=== PATIENT | male | born 1960 | race Caucasian/White ===

== ENCOUNTER → 2021-05-20 07:59 | Outpatient (CLI) | payer OTHER, SELFPAY ==
[2021-05-20 08:44] LABS: Absolute Lymphocyte Count 2.05 X10^3/uL (0.83-4.51); Absolute Neutrophil Count 5.1 X10^3/uL (2.0-7.7); Basophil# 0.08 X10^3/uL; Eosinophil# 0.26 X10^3/uL; Eosinophils% 3.2 % (0-5); Hematocrit 45.8 % (40-54); Hemoglobin 15.7 g/dL (13.0-16.5); Lymphocyte # 2.05 X10^3/ul (0.83-4.51); Mean Corp Hgb Conc 34.3 g/dL (32-36); Mean Corpuscular Hgb 30.9 pg (27.0-32.0); Mean Corpuscular Volume 90.2 fL (80-94); Mean Platelet Vol. 9.1 fl (6.2-12.0); Monocyte# 0.67 X10^3/uL; Monocyte% 8.2 % (0-10); NRBC Flagged by Analyzer 0 % (0-5); Neutrophil # 5.13 X10^3/uL (2.7-7.7); Neutrophil % 62.4 % (47-70); Platelet Count 248 K/mm3 (150-450); RBC Distribution Width CV 11.8 % (11.6-14.6); RBC Distribution Width SD 38.8 fl (35.1-43.9); Red Blood Count 5.08 M/mm3 (4.6-6.2); White Blood Count 8.2 K/mm3 (4.4-11.0)
[2021-05-20 09:45] LABS: ALB/GLOB Ratio 1.1 RATIO (0.9-2.4); AST(SGOT) 41 U/L (15-37); Alanine Aminotransfer ALT/SGPT 73 U/L (16-61); Alkaline Phosphatase 93 U/L (45-117); Anion Gap 5 (5-15); BUN 12 mg/dL (7-18); BUN/Creat Ratio 16.2 RATIO (10-20); Calcium,Total 8.5 mg/dL (8.5-10.1); Chloride 102 mmol/L (98-107); Cholesterol 200 mg/dL (200); Creatinine, Serum 0.74 mg/dL (0.70-1.30); EST Glomerular Filtration Rate 114 mL/min (>60); Est Glom Filt Rate - Afr Amer 138 mL/min (>60); Globulin 3.6 g/dL (2.2-4.2); Glucose 90 mg/dL (74-106); High Density Lipoprotein 53 mg/dL; Potassium 3.5 mmol/L (3.5-5.1); Protein, Total 7.6 g/dL (6.4-8.2); Sodium Level 137 mmol/L (136-145); Thyroid Stim Hormone (TSH) 7.64 uIU/mL (0.358-3.74); Triglycerides 397 mg/dL; Very Low Density Lipoprotein 79 mg/dL (5-40)
== END ==
PROVIDERS: PCP Family Medicine; Referring Provider Family Medicine; Visit Provider Family Medicine
DX: I10 Essential (primary) hypertension (principal); E78.5 Hyperlipidemia, unspecified; E03.9 Hypothyroidism, unspecified; K21.9 Gastro-esophageal reflux disease without esophagitis
CPT/HCPCS: 36415; 80053; 80061; 84443; 85025

== ENCOUNTER 2021-12-16 10:41 | Emergency (ER) | payer OTHER, SELFPAY ==
[2021-12-16 10:42] VITALS: BP 125/97; PULSE 64; RESP 16; TEMP 36.6; O2SAT 99; BMI 26.4
--- NOTE | 2021-12-16 11:15 | RAD_ITS ---
STUDY: X-RAY - RIGHT WRIST REASON FOR EXAM: Right wrist pain, right wrist injury. TECHNIQUE: 3 view(s) of the wrist were obtained. COMPARISON: None. FINDINGS: Normal visualized distal radius and ulna. Normal radiocarpal articulation. Normal distal radioulnar articulation. Normal carpal bones. Normal carpal articulations. Normal carpometacarpal articulation of the thumb. Normal second through fifth carpometacarpal articulations. Normal visualized metacarpal bones. The soft tissue structures are unremarkable. RAD/Wrist min 3 Views IMPRESSION: Unremarkable x-ray examination of the right wrist. Electronically Signed: Kolby Mckeon MD at 12:15 EST ,
--- NOTE | 2021-12-16 13:19 | EX.ED.UPPERE ---
HPI History of Present Illness HPI Narrative: Patient presents with right wrist pain that began after a fall today. Patient slipped on the ice and landed on his right wrist. Patient states that the pain is dull. Patient states the pain is worse with movement. Patient states nothing seems to help with the pain. Patient states that the swelling has gotten progressively worse since the fall. Patient denies any head injury or loss of consciousness. Patient denies any paresthesias or weakness. Patient denies any other injuries. Chief Complaint: Upper Extremity Injury Informant: patient Occured/Mechanism Mechanism/Context: Yes fall Onset/Context/Timing Onset: Today Context: Sudden Onset Timing: Continuous Quality of Pain: Dull Location: Right wrist Worsened by: Movement Relieved by: Nothing Associated Symptoms Associated Symptoms: Negative for Parasthesia, Weakness and Loss of Funtion PFSH PFSH Medical History GERD (gastroesophageal reflux disease) Hypertension Hypothyroid Home Medications ibuprofen 800 mg PO Q8H PRN #20 tab 12/16/21 [Rx Last Taken Unknown] Allergy/AdvReac Type Severity Reaction Status Date / Time Penicillins [PCN] Allergy PT UNSURE Verified 12/16/21 10:42 OF REACTION Surgical History History of appendectomy Social History Smoking Status: Former smoker ROS ROS ED Constitutional Constitutional ED: Denies chills or fever(s) Eyes Eyes: Denies blurry vision or change in vision ENT ENT ED: Denies rhinorrhea or sore throat Cardiovascular Cardiovascular: Denies chest pain or palpitations Respiratory/Chest Respiratory/Chest: Denies cough or dyspnea Gastrointestinal Gastrointestinal: Denies nausea or vomiting Genitourinary Genitourinary ED: Denies dysuria or hematuria Musculoskeletal Musculoskeletal: Reports back pain; Denies neck pain Integumentary Denies abscess or rash Neurologic Neurologic: Denies headache(s) or weakness Allergic/Immunologic Allergic/Immunologic ED: Denies mouth swelling or urticaria EXAM Physical Exam Const Vital Signs: 12/16/21 10:42 Temperature 97.8 F Temperature Source Temporal Pulse Rate 64 Respiratory Rate 16 Blood Pressure 125/97 H Blood Pressure Mean 106 Pulse Ox 99 Oxygen Delivery Method Room Air Positive well nourished and well developed General Appearance ED: well developed HEENT Reports moist mucous membranes Neck full ROM and supple Extremity Extremity Narrative: There is tenderness and edema over the dorsal aspect of the right wrist. There is no tenderness over the anatomic snuffbox. There is no obvious deformity noted. Range of motion was slightly limited in flexion extension of the right wrist secondary to pain. Radial pulses are equal bilaterally. Sensation was intact to light touch in the radial, median, and ulnar areas. Strength is 5/5 in the radial, median, and ulnar areas. Neuro oriented x3, CN's II-XII intact bilaterally, moves all extremities, no focal motor deficits and no sensory deficits noted Sensorium / Orientation: alert Psych mental status grossly normal MDM MDM MDM Narrative Medical decision making narrative: X-rays of the right wrist were obtained. There are 3 views. On my interpretation, there is no acute fracture. There is no dislocation. Radiologist also interpreted the x-rays and agrees. Patient was given a Velcro wrist splint. Even though the patient does not have tenderness over the anatomic snuffbox, I did discuss the possibility of an occult scaphoid fracture with the patient. Patient was encouraged to follow-up with his primary care physician in 1 to 2 weeks. Patient was instructed to ice and elevate the right wrist. Patient was instructed to take Tylenol or ibuprofen as needed for pain. Patient understood and was agreeable with the plan. All questions were answered. Radiography Diagnostic Testing: Clinical Impression(s) from Imaging Studies Wrist X-Ray 12/16/21 11:15 IMPRESSION: Unremarkable x-ray examination of the right wrist. Electronically Signed: Kolby Mckeon MD at 12:15 [facility] , Discharge Plan Triage Chief Complaint: Upper Extremity Injury ED Provider: Rodney Zimmer Dx/Rx/DC Orders Clinical Impression: Right wrist sprain Instructions: ED Wrist Sprain Prescriptions: New ibuprofen 800 mg tablet 800 mg PO Q8H PRN (Reason: pain) Qty: 20 RF: 0 Primary Care Provider: Jayde Love Referrals: Jayde Love MD [Primary Care Provider] - 5-7 Days Disposition Disposition: Home, Self Care Discharge Date/Time: 12/16/21 13:36
[2021-12-16 13:36] VITALS: RESP 18
== END 2021-12-16 13:36 | disposition home or self-care (01) ==
PROVIDERS: Emergency Provider Emergency Medicine; PCP Family Medicine; Visit Provider Emergency Medicine
DX: S63.91XA Sprain of unspecified part of right wrist and hand, initial encounter (principal); Z87.891 Personal history of nicotine dependence; W00.0XXA Fall on same level due to ice and snow, initial encounter; Y93.9 Activity, unspecified; Y92.9 Unspecified place or not applicable
CPT/HCPCS: 73110; 99283

== ENCOUNTER → 2022-09-01 | Outpatient (CLI) | payer OTHER, SELFPAY ==
[2022-09-01 09:17] LABS: Absolute Lymphocyte Count 2.07 X10^3/uL (0.83-4.51); Absolute Neutrophil Count 4.1 X10^3/uL (2.0-7.7); Basophil# 0.09 X10^3/uL; Basophil% 1.3 % (0-1); Eosinophil# 0.18 X10^3/uL; Eosinophils% 2.5 % (0-5); Hematocrit 45.9 % (40-54); Hemoglobin 15.5 g/dL (13.0-16.5); Lymphocyte # 2.07 X10^3/ul (0.83-4.51); Lymphocyte % 29.1 % (19-41); Mean Corp Hgb Conc 33.8 g/dL (32-36); Mean Corpuscular Hgb 31.3 pg (27.0-32.0); Mean Corpuscular Volume 92.7 fL (80-94); Mean Platelet Vol. 9.3 fl (6.2-12.0); Monocyte# 0.62 X10^3/uL; Monocyte% 8.7 % (0-10); NRBC Flagged by Analyzer 0 % (0-5); Neutrophil # 4.14 X10^3/uL (2.7-7.7); Neutrophil % 58.1 % (47-70); Platelet Count 248 K/mm3 (150-450); RBC Distribution Width CV 11.9 % (11.6-14.6); Red Blood Count 4.95 M/mm3 (4.6-6.2); White Blood Count 7.1 K/mm3 (4.4-11.0)
[2022-09-01 09:52] LABS: AST(SGOT) 29 U/L (15-37); Alanine Aminotransfer ALT/SGPT 49 U/L (16-61); Albumin, Serum 3.9 g/dL (3.2-5.0); Alkaline Phosphatase 86 U/L (45-117); Anion Gap 9 (5-15); BUN 11 mg/dL (7-18); BUN/Creat Ratio 13.6 RATIO (10-20); Calcium,Total 8.7 mg/dL (8.5-10.1); Chloride 103 mmol/L (98-107); Cholesterol 183 mg/dL (200); Creatinine, Serum 0.81 mg/dL (0.70-1.30); EST Glomerular Filtration Rate 103 mL/min (>60); Est Glom Filt Rate - Afr Amer 125 mL/min (>60); Globulin 3.8 g/dL (2.2-4.2); Glucose 78 mg/dL (74-106); High Density Lipoprotein 73 mg/dL; Potassium 4.2 mmol/L (3.5-5.1); Protein, Total 7.7 g/dL (6.4-8.2); Sodium Level 139 mmol/L (136-145); Triglycerides 177 mg/dL; Very Low Density Lipoprotein 35 mg/dL (5-40)
== END | disposition home or self-care (01) ==
LOC: LAB 08:34
PROVIDERS: PCP Family Medicine; Referring Provider Family Medicine; Visit Provider Family Medicine
DX: Z00.00 Encounter for general adult medical examination without abnormal findings (principal); I10 Essential (primary) hypertension; E78.5 Hyperlipidemia, unspecified; E03.9 Hypothyroidism, unspecified
CPT/HCPCS: 36415; 80053; 80061; 84443; 85025

== ENCOUNTER → 2022-10-20 | Outpatient (CLI) | payer OTHER, SELFPAY ==
[2022-10-20 09:41] LABS: PSA,Total- Diagnostic 0.32 ng/mL (0.0-4.0)
== END | disposition home or self-care (01) ==
LOC: LAB 08:24
PROVIDERS: PCP Family Medicine; Referring Provider Urology; Visit Provider Urology
DX: N40.1 Benign prostatic hyperplasia with lower urinary tract symptoms (principal)
CPT/HCPCS: 36415; 84153

== ENCOUNTER 2023-08-17 10:16 | Outpatient (CLI) | payer OTHER, SELFPAY ==
[2023-08-17 12:11] LABS: Color, Urine Yellow (Yellow); Glucose, Dipstick Normal (Normal); Ketone-Dipstick Negative (Negative); Leukocyte Esterase-Dipstick Negative /ul (Negative); Nitrite-Dipstick Negative (Negative); Occult Blood-Urine Negative /ul (Negative); Protein-Dipstick Negative (Negative); Specific Gravity, Urine 1.015 (1.002-1.030); Urine Bilirubin Dipstick Negative (Negative); Urine Clarity Clear (Clear); Urine Urobilinogen Normal (Normal)
[2023-08-17 12:14] LABS: Absolute Lymphocyte Count 2.35 X10^3/uL (0.83-4.51); Absolute Neutrophil Count 3.7 X10^3/uL (2.0-7.7); Basophil# 0.05 X10^3/uL; Basophil% 0.7 % (0-1); Eosinophils% 2.9 % (0-5); Hematocrit 44.6 % (40-54); Hemoglobin 14.9 g/dL (13.0-16.5); Lymphocyte # 2.35 X10^3/ul (0.83-4.51); Lymphocyte % 33.8 % (19-41); Mean Corp Hgb Conc 33.4 g/dL (32-36); Mean Corpuscular Hgb 31.2 pg (27.0-32.0); Mean Corpuscular Volume 93.5 fL (80-94); Mean Platelet Vol. 9.8 fl (6.2-12.0); Monocyte% 8.6 % (0-10); NRBC Flagged by Analyzer 0 % (0-5); Neutrophil # 3.72 X10^3/uL (2.7-7.7); Neutrophil % 53.4 % (47-70); Platelet Count 246 K/mm3 (150-450); RBC Distribution Width CV 11.9 % (11.6-14.6); RBC Distribution Width SD 41.3 fl (35.1-43.9); Red Blood Count 4.77 M/mm3 (4.6-6.2)
[2023-08-17 13:41] LABS: ALB/GLOB Ratio 0.9 RATIO (0.9-2.4); AST(SGOT) 31 U/L (15-37); Alanine Aminotransfer ALT/SGPT 69 U/L (16-61); Albumin, Serum 3.5 g/dL (3.2-5.0); Alkaline Phosphatase 79 U/L (45-117); Anion Gap 7 (5-15); BUN 13 mg/dL (7-18); BUN/Creat Ratio 18.7 RATIO (10-20); Calcium,Total 8.8 mg/dL (8.5-10.1); Chloride 105 mmol/L (98-107); Cholesterol 218 mg/dL (200); Creatinine, Serum 0.69 mg/dL (0.70-1.30); EST Glomerular Filtration Rate 122 mL/min (>60); Est Glom Filt Rate - Afr Amer 148 mL/min (>60); Globulin 3.7 g/dL (2.2-4.2); Glucose 86 mg/dL (74-106); High Density Lipoprotein 54 mg/dL; Potassium 4.1 mmol/L (3.5-5.1); Protein, Total 7.2 g/dL (6.4-8.2); Sodium Level 137 mmol/L (136-145); Thyroid Stim Hormone (TSH) 3.85 uIU/mL (0.358-3.74); Triglycerides 401 mg/dL
== END 2023-08-17 23:59 | disposition home or self-care (01) ==
LOC: BFHLAB 10:16
PROVIDERS: PCP Family Medicine; Referring Provider Family Medicine; Visit Provider Family Medicine
DX: Z00.00 Encounter for general adult medical examination without abnormal findings (principal); K21.9 Gastro-esophageal reflux disease without esophagitis; I10 Essential (primary) hypertension; E03.9 Hypothyroidism, unspecified; E78.5 Hyperlipidemia, unspecified
CPT/HCPCS: 36415; 80053; 80061; 81002; 84443; 85025

== ENCOUNTER → 2023-11-01 | Outpatient (CLI) | payer OTHER, SELFPAY ==
--- OUTSIDE RECORDS SUMMARY | 2023-11-01 13:16 | XMS RPT_ITS | CCD ---
Author Name Unknown Address [address] [place] [address] Organization [facility] Care Team Providers Care Bag Bundler Name Role Phone Jean Aldrich Primary Care Provider JEAN ALDRICH Primary Care Unavailable JOVANA RAYO Attending Unavailable Allergies Allergy Classification Reported Allergen(s) Allergy Type Date of Onset Reaction(s) Facility (1 source) Penicillins Propensity to adverse reactions to drug 06-09-2015 [place] (2 sources) Penicillins Propensity to adverse reactions 08-08-2023 [facility] Medications Current Medications Medication Drug Class(es) Dates Sig (Normalized) Sig (Original) benazepril hydrochloride 20 mg oral tablet (1 source) Angiotensin Converting Enzyme Inhibitor Start: 06-14-2020 take 1 tablet by mouth once daily in the morning benazepril (LOTENSIN) 20 MG tablet Take 1 tablet by mouth every morning 30 tablet 5 06/14/2020 Active levothyroxine sodium 0.088 mg oral tablet (1 source) l-Thyroxine Start: 06-14-2020 take 1 tablet by mouth once daily before breakfast levothyroxine (SYNTHROID) 88 MCG tablet Take 1 tablet by mouth every morning (before breakfast) 30 tablet 5 06/14/2020 Active lovastatin 40 mg oral tablet (1 source) HMG-CoA Reductase Inhibitor Start: 06-14-2020 take 1 tablet by mouth once daily lovastatin (MEVACOR) 40 MG tablet Take 1 tablet by mouth nightly 30 tablet 5 06/14/2020 Active omeprazole 20 mg delayed release oral capsule (1 source) Proton Pump Inhibitor Start: 06-14-2020 take 1 capsule by mouth once daily before breakfast omeprazole (PRILOSEC) 20 MG delayed release capsule Take 1 capsule by mouth every morning (before breakfast) 30 capsule 5 06/14/2020 Active sildenafil 100 mg oral tablet (1 source) Phosphodiesterase 5 Inhibitor Start: 06-14-2020 sildenafil (VIAGRA) 100 MG tablet Take 1 tablet by mouth as needed for Erectile Dysfunction 24 tablet 1 06/14/2020 Active Completed/Discontinued Medications Medication Drug Class(es) Dates Sig (Normalized) Sig (Original) predniSONE 20 mg oral tablet (4 sources) Start: 08-08-2023 End: 08-08-2023 predniSONE (Deltasone) tablet 60 mg Problems Active Problems Problem Classification Problem Date Documented Date Episodic/Chronic Disorders of lipid metabolism (3 sources) Mixed hyperlipidemia; Translations: [Mixed hyperlipidemia] Onset: 06-10-2015 06-10-2015 Chronic Esophageal disorders (4 sources) Gastroesophageal reflux disease without esophagitis; Translations: [Gastroesophageal reflux disease] Onset: 01-19-2016 03-15-2016 Chronic Essential hypertension (3 sources) Essential hypertension; Translations: [Essential (primary) hypertension] Onset: 08-10-2017 05-22-2019 Chronic Other connective tissue disease (1 source) Metatarsalgia of right foot; Translations: [Metatarsalgia of right foot] Other male genital disorders (3 sources) Male erectile dysfunction, unspecified; Translations: [Impotence of organic origin] Onset: 01-24-2018 05-22-2019 Chronic Poisoning by nonmedicinal substances (4 sources) Bee sting; Translations: [Toxic effect of venom of bees, accidental (unintentional), initial encounter] Onset: 08-08-2023 08-08-2023 Episodic Thyroid disorders (7 sources) Non-toxic multinodular goiter; Translations: [Acquired hypothyroidism] Onset: 10-22-2011 06-10-2015 Chronic Past or Other Problems Problem Classification Problem Date Documented Date Episodic/Chronic Residual codes; unclassified (3 sources) Family history of ischemic heart disease; Translations: [Family history of ischemic heart disease and other diseases of the circulatory system] Onset: 06-10-2015 06-10-2015 Episodic Residual codes; unclassified (4 sources) Family history of malignant neoplasm of gastrointestinal tract; Translations: [Family history of malignant neoplasm of digestive organs] Onset: 12-14-2019 Resolved: 09-13-2016 12-14-2019 Episodic Residual codes; unclassified (3 sources) Family history of malignant neoplasm of pancreas; Translations: [Family history of malignant neoplasm of digestive organs] Onset: 09-13-2016 09-13-2016 Episodic Results Test Name Value Interpretation Reference Range Facil ity Vital Signs Date Time Vital Sign Value Performing Clinician Faci lity 08-08-2023 15:32-0400 Body height 180.3 cm Jovana Rayo MD Work Phone: [facility] [employer] 08-08-2023 15:32-0400 Body mass index (BMI) [Ratio] 27.89 kg/m2 Jovana Rayo MD Work Phone: [facility] [facility] 08-08-2023 15:32-0400 Body temperature 98.4 [degF] Jovana Rayo MD Work Phone: [facility] [facility] 08-08-2023 15:32-0400 Body weight 90.72 kg Jovana Rayo MD Work Phone: [facility] [facility] 08-08-2023 15:32-0400 Diastolic blood pressure 91 mm[Hg] Jovana Rayo MD Work Phone: [facility] [facility] 08-08-2023 15:32-0400 Heart rate 64 /min Jovana Rayo MD Work Phone: [facility] [facility] 08-08-2023 15:32-0400 Respiratory rate 16 /min Jovana Rayo MD Work Phone: [facility] [facility] 08-08-2023 15:32-0400 SaO2% (BldA) [Mass fraction] 98 % Jovana Rayo MD Work Phone: [facility] [facility] 08-08-2023 15:32-0400 Systolic blood pressure 132 mm[Hg] Jovana Rayo MD Work Phone: [facility] [facility] Encounters Encounter Date Encounter Type Care Provider Facility Start: 08-08-2023 End: 08-08-2023 Emergency department patient visit JEAN ALDRICH [facility] Start: 08-08-2023 End: 08-08-2023 Emergency department patient visit Jovana Rayo MD Work Phone: [facility] ED Procedures Date Procedure Procedure Detail Performing Clinician Start: 08-23-2020 Radex elbow complete minimum 3 views Jean Aldrich Work Phone: Start: 08-23-2020 Radex foot complete minimum 3 views Jean Meza Valdemar Work Phone: Start: 06-14-2020 Lipid 1996 panel - S calos or Plasma Jovana Rayo MD Work Phone: Plan of Treatment Date Care Activity Detail Author Start: 06-14-2025 Lipid panel Lipid Panel [facility] Start: 06-22-2023 Influenza vaccination Influenza Vacc ine (#1) [facility] Start: 02-15-2022 Screening for malign ant neoplasm of colon Colon cancer screen colonoscopy [place], [place] Start: 06-14-2021 Creatinine measurement Creatinine mo [place]itoring [place] Start: 06-14-2021 Lipid panel Lipid screen [place], [place] Start: 06-14-2021 Potassium monitoring Potassium monit [place]ing [place] Start: 06-14-2021 TSH Qn TSH testing [place] Start: 12-15-2020 End: 12-15-2020 Office Visit 12/15/2020 Office Visit Family Medicine Jean Aldrich, DO [address] [place] [id number] [phone] [facility] Start: 06-22-2020 Influenza vaccination Flu vaccine (# 1) [place] Start: 2010 Shingles Vaccine (1 of 2) Shingles Vaccine (1 of 2) [place] Start: 2010 Zoster Vaccines (1 of 2) Zoster Vacc marichuy (1 of 2) [facility] Start: 1979 DTaP/Tdap/Td vaccine (1 - Tdap) DTaP/Tdap/Td vaccine (1 - Tdap) [place] Start: 1979 DTaP/Tdap/Td Vaccine s (1 - Tdap) DTaP/Tdap/Td Vaccines (1 - Tdap) [facility] Start: 1978 Diabetes mellitus screening Diabetes Screening [facility] Start: 1978 Hepatitis C screening Hepatitis C Sc reening [facility] Start: 1975 HIV screening HIV screen [place], [place] Start: 1972 Depression Screening Depression Scre ening [facility] Start: 1961 MMR Vaccines (1 of 1 - Standard series) MMR Vaccines (1 of 1 - Standard series) [facility] Start: 05-21-1961 COVID-19 Vaccine (#1) COVID-19 Vacci ne (#1) [facility] Start: 1960 Hepatitis C screening Hepatitis C sc reen [place], [place] Start: 1960 HIV screening HIV Screening [facility] Start: 1960 Screening for malign ant neoplasm of colon [facility] Start: 1960 Thyroid Nodule Ultrasound Thyroid Nodule Ultrasound [facility] Start: 1960 Thyroid stimulating hormone measurement TSH Level [facility] Payers Date Payer Category Payer Unknown QASIM DANIELS [employer] [id number] 2023-Present [address] [place] [address] Exchange Plan [id number] 2023 Unknown [id number] 2015 Unknown BCBS [place]BS - [place] P PO [id number] 2015-Present [address] [place] [address] [id number] Social History Date Type Detail Facility Start: 08-23-2020 End: 08-08-2023 Tobacco smoking status NHIS Former [place] End: 06-10-2008 History of tobacco use [place] End: 06-10-2008 History of tobacco use Cigarette Sm[place] Start: 08-23-2020 End: 08-08-2023 Tobacco use and exposure Never used [place] Start: 08-23-2020 End: 08-08-2023 Alcohol intake Current drinker of alcohol (finding) [place] Start: 05-22-2019 History SDOH Alcohol Frequency 5 [place] Start: 05-22-2019 History SDOH Alcohol Std Drinks 3 [place] Start: 05-22-2019 History SDOH Social Connections Phone 2 [place] Start: 05-22-2019 History SDOH Social Connections Yazdanism 1 [place] Start: 05-22-2019 History SDOH Social Connections Living 4 [place] Start: 05-22-2019 History SDOH Physica l Activity MPS 6 [place] Start: 06-10-2015 Alcohol Comment couple of beer s in the evening [place], [place] Start: 1960 Sex Assigned At Not on file [place] Start: 08-08-2023 Alcohol intake [facility] Start: 08-08-[address] [facility] Gender identity Not on file [facility] Goals Date Patient Goal Desired Activity /State Hospital Discharge instructions 08-08-2023 Discharge InstructionsAttachments Note Date & Type Note Facility 08-08-2023 Hospital Discharg e instructions Jovana Rayo MD - 08/08/2023 3:51 PM EDT Ice and elevate the hand and take Benadryl as directed. The following attachments cannot be sent through Care Everywhere.Insect Bites and Stings (Amharic)documented in this encounter [facility] Emergency department Note 08-08-2023 Jovana Rayo MD - 08/08/2023 3:25 PM EDTSrickie Gonzalez RN - 08/08/2023 3:25 PM EDT Note Date & Type Note Facility 08-08-2023 Emergency departm ent Note EMERGENCY DEPARTMENT ENCOUNTER Pt Name: Jorge Velasquez Birthdate 1960 Date of evaluation: 08/08/2023 ED Provider: JOVANA RAYO MD CHIEF COMPLAINT Chief Complaint Patient presents with Insect Bite hand swelling HISTORY OF PRESENT ILLNESS (Location/Symptom, Timing/Onset, Context/Setting, Quality, Duration, Modifying Factors, Severity) Note limiting factors. I wore appropriate PPE for the entirety of this encounter. HPI Jorge Velasquez is a 62 y.o. who presents to the emergency department with chief complaint of right hand swelling from a bee sting. Patient states he was cutting the grass and got stung on the fifth finger. He continued cutting turning the steering well for the mower and is handcuffed getting more more swollen. Denies any tongue swelling throat swelling or difficulty breathing or swallowing. Nursing Notes were reviewed. Limitations to history: None Outside historians: None REVIEW OF SYSTEMS Review of Systems Pertinent positives and negatives as per HPI. PAST MEDICAL HISTORY Past Medical History: Diagnosis Date Acquired hypothyroidism 2012 Elbow fracture, right 1973 Essential hypertension 2016 Family history of ischemic heart disease Family history of malignant neoplasm of gastrointestinal tract brother , Noble age 55 GERD (gastroesophageal reflux disease) H/O colonoscopy 2011 [place]- due 2021 Mixed hyperlipidemia 2014 Nontoxic multinodular goiter 2004 Prostate cancer screening 05/2020 SURGICAL HISTORY Past Surgical History: Procedure Laterality Date APPENDECTOMY [address] Charisma anderson 2021 UMBILICAL HERNIA REPAIR 02/04 CURRENT MEDICATIONS Previous Medications No medications on file ALLERGIES Pcn [penicillins] FAMILY HISTORY Family History Problem Relation Name Age of Onset Diabetes Brother Pio diet cont Heart disease Mother age 72 Depression Mother Heart disease Brother Tony 40.00 CAD, age 55 Heart disease Father [place] and cerebral Aneurysm at age 66 Pancreatic cancer Brother Noble 55.00 in 2012 Arthritis Brother Pio oseoarthritis Coronary artery disease Brother Allen 55.00 stents, alive age 60 SOCIAL HISTORY Social History Socioeconomic History Marital status: Tobacco Use Smoking status: Former Packs/day: 0 Types: Cigarettes Quit date: 06/10/2008 Years since quittin.1 Smokeless tobacco: Never Substance and Sexual Activity Alcohol use: Yes Alcohol/week: 6.0 standard drinks of alcohol Types: 6 Standard drinks or equivalent per week Comment: frequently Drug use: No Social History Narrative since 03/08 from [place] ([place] ,liviing with [place] since winter 2017. Has one son and one dtr Jami. 5 GD, one GS. Stopped smoking 2007,. Employed at [employer]. Does admit to drinking a six pack of beer a day. SCREENINGS PHYSICAL EXAM ED Triage Vitals [08/08/23 1532] Temp Heart Rate Resp BP 36.9 C (98.4 F) 64 16 (!) 132/91 SpO2 Temp Source Heart Rate Source Patient Position 98 % Oral -- -- BP Location FiO2 (%) -- -- General appearance: Well-appearing, no acute distress. Psych: Awake alert and oriented 3. Pleasant and cooperative. Skin: Warm and dry. Neck: Supple. Cardiovascular: Regular rate and rhythm Lungs: Clear to auscultation bilaterally, no accessory muscle use, tachypnea, or retractions. Extremities: Warm and well perfused. NROM and SILT throughout upper and lower extermities. Right hand is edematous minimally tender and mild erythema normal range of motion of all fingers. DIAGNOSTIC RESULTS Interpretation per the Radiologist below, if available at the time of this note: No orders to display ED BEDSIDE ULTRASOUND: Performed by ED Physician - none LABS: Labs Reviewed - No data to display All other labs were within normal range or not returned as of this dictation. EMERGENCY DEPARTMENT COURSE and DIFFERENTIAL DIAGNOSIS/MDM: Vitals: Vitals: 08/08/23 1532 BP: (!) 132/91 Pulse: 64 Resp: 16 Temp: 36.9 C (98.4 F) TempSrc: Oral SpO2: 98% Weight: 90.7 kg (200 lb) Height: 1.803 m (5' 11 ) The patient presented with a chief complaint of bee sting. The differential diagnosis associated with this patient's presentation includes allergic reaction from a insect sting. Placed on steroids Benadryl and given return precautions. Diagnoses as of 08/08/23 1552 Bee sting reaction, accidental or unintentional, initial encounter ED Medications managed: Medications predniSONE (Deltasone) tablet 60 mg (has no administration in time range) CRITICAL CARE TIME CONSULTS: None PROCEDURES: Unless otherwise noted below, none Procedures FINAL IMPRESSION 1. Bee sting reaction, accidental or unintentional, initial encounter DISPOSITION Discharge 08/08/2023 03:51:36 PM PATIENT REFERRED TO: Jean Aldrich DO [address] [facility] [address] Schedule an appointment as soon as possible for a visit in 1 week [facility] ED [address] [facility] [phone] If symptoms worsen DISCHARGE MEDICATIONS: New Prescriptions PREDNISONE (DELTASONE) 10 MG TABLET Take 4 tablets (40 mg) by mouth daily for 4 days. (Comment: Please note this report has been produced using speech recognition software and may contain errors related to that system including errors in grammar, punctuation, and spelling, as well as words and phrases that may be inappropriate. If there are any questions or concerns please feel free to contact the dictating provider for clarification.) JOVANA RAYO MD (electronically signed) Emergency Medicine Provider Jovana Rayo MD 08/08/23 1553 States stung by bee this afternoon while working in the yard. Right hand moderately swollen with intact sensation and movement. Ice bag applied. States throat feels scratchy but thinks has had that all day. No respiratory difficulty. documented in this encounter [facility] Emergency department Triage note 08-08-2023 Mariel Gonzalez RN - 08/08/2023 3:25 PM EDT Note Date & Type Note Facility 08-08-2023 Emergency departm ent Triage note States stung by bee this afternoon while working in the yard. Right hand moderately swollen with intact sensation and movement. Ice bag applied. States throat feels scratchy but thinks has had that all day. No respiratory difficulty. [facility] Physician Emergency department Note 08-08-2023 Jovana Rayo MD - 08/08/2023 3:25 PM EDT Note Date & Type Note Facility 08-08-2023 Physician Emergen cy department Note EMERGENCY DEPARTMENT ENCOUNTER Pt Name: Jorge Velasquez Birthdate 1960 Date of evaluation: 08/08/2023 ED Provider: JOVANA RAYO MD CHIEF COMPLAINT Chief Complaint Patient presents with Insect Bite hand swelling HISTORY OF PRESENT ILLNESS (Location/Symptom, Timing/Onset, Context/Setting, Quality, Duration, Modifying Factors, Severity) Note limiting factors. I wore appropriate PPE for the entirety of this encounter. HPI Jorge Velasquez is a 62 y.o. who presents to the emergency department with chief complaint of right hand swelling from a bee sting. Patient states he was cutting the grass and got stung on the fifth finger. He continued cutting turning the steering well for the mower and is handcuffed getting more more swollen. Denies any tongue swelling throat swelling or difficulty breathing or swallowing. Nursing Notes were reviewed. Limitations to history: None Outside historians: None REVIEW OF SYSTEMS Review of Systems Pertinent positives and negatives as per HPI. PAST MEDICAL HISTORY Past Medical History: Diagnosis Date Acquired hypothyroidism 2012 Elbow fracture, right 1973 Essential hypertension 2016 Family history of ischemic heart disease Family history of malignant neoplasm of gastrointestinal tract brother , Noble age 55 GERD (gastroesophageal reflux disease) H/O colonoscopy 2011 [place]- due 2021 Mixed hyperlipidemia 2014 Nontoxic multinodular goiter 2004 Prostate cancer screening 05/2020 SURGICAL HISTORY Past Surgical History: Procedure Laterality Date APPENDECTOMY [address] Charisma anderson 2021 UMBILICAL HERNIA REPAIR 02/04 CURRENT MEDICATIONS Previous Medications No medications on file ALLERGIES Pcn [penicillins] FAMILY HISTORY Family History Problem Relation Name Age of Onset Diabetes Brother Pio diet cont Heart disease Mother age 72 Depression Mother Heart disease Brother Tony 40.00 CAD, age 55 Heart disease Father [place] and cerebral Aneurysm at age 66 Pancreatic cancer Brother Noble 55.00 in 2012 Arthritis Brother Pio oseoarthritis Coronary artery disease Brother Allen 55.00 stents, alive age 60 SOCIAL HISTORY Social History Socioeconomic History Marital status: Tobacco Use Smoking status: Former Packs/day: 0 Types: Cigarettes Quit date: 06/10/2008 Years since quittin.1 Smokeless tobacco: Never Substance and Sexual Activity Alcohol use: Yes Alcohol/week: 6.0 standard drinks of alcohol Types: 6 Standard drinks or equivalent per week Comment: frequently Drug use: No Social History Narrative since 03/08 from [place] ([place] ,liviing with [place] [facility] since winter 2017. Has one son and one dtr Jami. 5 GD, one GS. Stopped smoking 2007,. Employed at [employer]. Does admit to drinking a six pack of beer a day. SCREENINGS PHYSICAL EXAM ED Triage Vitals [08/08/23 1532] Temp Heart Rate Resp BP 36.9 C (98.4 F) 64 16 (!) 132/91 SpO2 Temp Source Heart Rate Source Patient Position 98 % Oral -- -- BP Location FiO2 (%) -- -- General appearance: Well-appearing, no acute distress. Psych: Awake alert and oriented 3. Pleasant and cooperative. Skin: Warm and dry. Neck: Supple. Cardiovascular: Regular rate and rhythm Lungs: Clear to auscultation bilaterally, no accessory muscle use, tachypnea, or retractions. Extremities: Warm and well perfused. NROM and SILT throughout upper and lower extermities. Right hand is edematous minimally tender and mild erythema normal range of motion of all fingers. DIAGNOSTIC RESULTS Interpretation per the Radiologist below, if available at the time of this note: No orders to display ED BEDSIDE ULTRASOUND: Performed by ED Physician - none LABS: Labs Reviewed - No data to display All other labs were within normal range or not returned as of this dictation. EMERGENCY DEPARTMENT COURSE and DIFFERENTIAL DIAGNOSIS/MDM: Vitals: Vitals: 08/08/23 1532 BP: (!) 132/91 Pulse: 64 Resp: 16 Temp: 36.9 C (98.4 F) TempSrc: Oral SpO2: 98% Weight: 90.7 kg (200 lb) Height: 1.803 m (5' 11 ) The patient presented with a chief complaint of bee sting. The differential diagnosis associated with this patient's presentation includes allergic reaction from a insect sting. Placed on steroids Benadryl and given return precautions. Diagnoses as of 08/08/23 1552 Bee sting reaction, accidental or unintentional, initial encounter ED Medications managed: Medications predniSONE (Deltasone) tablet 60 mg (has no administration in time range) CRITICAL CARE TIME CONSULTS: None PROCEDURES: Unless otherwise noted below, none Procedures FINAL IMPRESSION 1. Bee sting reaction, accidental or unintentional, initial encounter DISPOSITION Discharge 08/08/2023 03:51:36 PM PATIENT REFERRED TO: Jean Aldrich DO [address] [facility] [phone] Schedule an appointment as soon as possible for a visit in 1 week [facility] ED [address] [facility] [phone] If symptoms worsen DISCHARGE MEDICATIONS: New Prescriptions PREDNISONE (DELTASONE) 10 MG TABLET Take 4 tablets (40 mg) by mouth daily for 4 days. (Comment: Please note this report has been produced using speech recognition software and may contain errors related to that system including errors in grammar, punctuation, and spelling, as well as words and phrases that may be inappropriate. If there are any questions or concerns please feel free to contact the dictating provider for clarification.) JOVANA RAYO MD (electronically signed) Emergency Medicine Provider Jovana Rayo MD 08/08/[address] [facility] Evaluation note Note Date & Type Note Facility documented in this encounter [facility] Assessments Diagnosis Metatarsalgia of right foot Enthesopathy of ankle and tarsus, unspecified Advance Directives No Advanced Directives Records FoundDocuments on File Type Date Recorded Patient Technology Sales Specialist Expl anation ACP-Advance Directive ACP-Power of Hood Maker ACP-Power of Hood Maker 06/24/2019 10:52 AM Summary Purpose Family History No Family History Records FoundNo Family History Records Found Additional Source Comments (unrecognized sect ion and content) No Status Records FoundNo Status Records Found INFORMATION SOURCE (unrecogn ized section and content) DATE CREATED AUTHOR AUTHOR'S ORGANIZ ATION 08/10/2023 [facility] Reason for Visit (unrecogniz ed section and content) Scheduled Active and Recently Administ ered Medications (unrecognized section and content) Care Teams (unrecognized sec tion and content) FOR RECORDS PERTAINING TO PATIENTS WHO ARE OR HAVE BEEN ENROLLED IN A CHEMICAL DEPENDENCY/SUBSTANCEABUSE PROGRAM, SOME INFORMATION MAY BE OMITTED. This clinical summary was aggregated from multiple sources. Caution should be exercised in using it in the provision of clinical care. This summary normalizes information from multiple sources, and as a consequence, information in this document may materially change the coding, format and clinical context of patient data. In addition, data may be omitted in some cases. CLINICAL DECISIONS SHOULD BE BASED ON THE PRIMARY CLINICAL RECORDS. [employer] provides no warranty or guarantee of the accuracy or completeness of information in this document.
[2023-11-01 14:11] LABS: PSA,Total - Annual Screen 0.32 ng/mL (0.00-4.00)
== END | disposition home or self-care (01) ==
LOC: LAB 12:48
PROVIDERS: PCP Family Medicine; Referring Provider Urology; Visit Provider Urology
DX: N52.9 Male erectile dysfunction, unspecified (principal)
CPT/HCPCS: 36415; 84153; G0103

== ENCOUNTER → 2024-08-11 | Outpatient (CLI) | payer OTHER, SELFPAY ==
--- OUTSIDE RECORDS SUMMARY | 2024-08-11 08:41 | XMS RPT_ITS | CCD ---
Author Organization [facility] Inform ion Partnership [facility] Care Team Providers Care Loader Hel[employer] Name Role Phone Jean Aldrich Primary Care Provider JEAN ALDRICH Primary Care Unavailable JOVANA RAYO Attending Unavailable Allergies Allergy Classification Reported Allergen(s) Allergy Type Date of Onset Reaction(s) Facility (1 source) Penicillins Propensity to adverse reactions to drug 06-09-2015 [place] (2 sources) Penicillins Propensity to adverse reactions 08-08-2023 [facility] Medications Current Medications Medication Drug Class(es) Dates [...] End: 08-08-2023 predniSONE (Deltasone) tablet 60 mg Start: 08-08-2023 End: 08-08-2023 predniSONE (Deltasone) table t 60 mg Start: 08-08-2023 End: 08-12-2023 take 4 tablets by mouth once daily predniSONE (Deltasone) 10 MG tablet Take 4 tablets (40 mg) by mouth daily for 4 days. 16 tablet 0 08/08/2023 08/12/2023 Active Problems Active Problems Problem Classification Problem Date [...] Name Value Interpretation Reference Range Facil ity Progress Noteon 08-09-2023 Progress Note Chart reviewed of ED follow up Seen in [facility] ED on 08/08/23 Reason: Insect Bite hand swelling Discharge instructions: Ice and elevate the hand and take Benadryl as directed PATIENT REFERRED TO: Jean Aldrich DO [address] [facility] [address] I am calling from Jean Aldrich DO's office, following up after your recent ED visit. Please call the office if your symptoms are worse and we can schedule a follow up appointment at [phone].Electronica lly signed by Rupali Sue LPN on 08/09/2023 at 4:07 PM If patient calls back, please assist with scheduling a ED follow up appointment. Normal [facility] ED Nursing Noteon 08-08-2023 ED Nursing Note States stung by bee this afternoon while working in the yard. Right hand moderately swollen with intact sensation and movement. Ice bag applied. States throat feels scratchy but thinks has had that all day. No respiratory difficulty. Normal [facility] ED Provider Noteon 3 ED Provider Note EMERGENCY DEPARTMENT ENCOUNTER Pt Name: Jorge [...] 2021 Mixed hyperlipidemia 2014 Nontoxic multinodular goiter 2005 Prostate cancer screening 05/2020 SURGICAL HISTORY Past [...] 40.00 CAD, age 55 Heart disease Father VT and cerebral Aneurysm at age 66 Pancreatic [...] History Narrative since 03/08 from [place] (acute [place]), ,liviing with [place] since winter 2017. Has one son and one dtr Jami. 5 GD, one GS. Stopped smoking 2007,. Employed at [employer]. Does admit to drinking a six pack of beer a day. SCREENINGS PHYSICAL EXAM ED Triage Vitals [08/08/23 1532] Temp Heart Rate Resp BP 36.9 ?C (98.4 ?F) 64 16 (!) 132/91 SpO2 Temp Source Heart Rate Source Patient Position 98 % Oral -- -- BP Location FiO2 (%) -- -- General appearance: Well-appearing, no acute distress. Psych: Awake alert and oriented ?3. Pleasant and cooperative. Skin: Warm and dry. [...] 132/91 Pulse: 64 Resp: 16 Temp: 36.9 ?C (98.4 ?F) TempSrc: Oral SpO2: 98% Weight: 90.7 kg [...] PM PATIENT REFERRED TO: Jean Aldrich DO [address] [place] [address] [address] [facility] (more content not included)... Normal [facility] CR Elbow 3+ Views Righton CR Elbow 3+ Views Right Patient Name: JORGE VELASQUEZ Diagnostic Radiology Exam Date/Time 08/23/2020 14:36:41 EST Exam CR Elbow 3+ Views Right Ordering Physician DO ALDRICH EUGENE F. Accession Number [id number] CPT4 Codes 36824 () Reason For Exam MT pain , ventrally Report RIGHT ELBOW, 3 VIEWS: INDICATION: Pain right elbow COMPARISON: No previous studies are available for comparison. Frontal, lateral and oblique views of the right elbow were obtained. The bone density appears normal. There are no fractures or dislocations. The joint spaces are within normal limits. There are no significant soft tissue abnormalities. No joint effusion is noted. IMPRESSION: Negative examination of the elbow. Report Dictated on Workstation: [id number] Final Dictating Physician: DO GLEZ ALFRED Signed Date and Time: 08/23/2020 4:39 pm Signed by: DO GLEZ ALFRED Transcribed Date and Time: 08/23/2020 4:40 Normal [facility] CR Foot Complete 3+ Views Ri alex 08-23-2020 CR Foot Complete 3+ Views Right Patient Name: JORGE VELASQUEZ Diagnostic Radiology Exam Date/Time 08/23/2020 14:36:41 EST Exam CR Foot Complete 3+ Views Right Ordering Physician DO ALDRICH EUGENE F. Accession Number [id number] CPT4 Codes 93736 () Reason For Exam ventral foot pain Report Indication: Pain. Three views of the right foot show no evidence of an acute fracture or dislocation. There is no bone destruction, erosion or periosteal reaction. No significant osteoarthritic degenerative changes are visualized. There is a small plantar calcaneal spur. There are no radiopaque foreign bodies. IMPRESSION: 1. No evidence of an acute bone process. 2. Small plantar calcaneal spur. Report Dictated on Final Dictating Physician: DO BARRERA ANTHONY Signed Date and Time: 08/23/2020 2:48 pm Signed by: DO BARRERA ANTHONY Transcribed Date and Time: 08/23/2020 2:49 Normal [facility] CR Shoulder 2+ Views Righton 08-23-2020 CR Shoulder 2+ Views Right Patient Name: JORGE VELASQUEZ Diagnostic Radiology Exam Date/Time 08/23/2020 14:36:41 EST Exam CR Shoulder 2+ Views Right Ordering Physician DO ALDRICH EUGENE F. Accession Number [id number] CPT4 Codes 04959 () Reason For Exam painful impingement Report Indication: Pain. Three views of the right shoulder show no evidence of an acute fracture or dislocation. There is no bone destruction, erosion or periosteal reaction. The right acromioclavicular joint is intact. There is mild bony spurring along the inferior aspect of the acromium. There are no radiopaque foreign bodies. IMPRESSION: 1. No evidence of an acute bone process. Mild bony spurring along the inferior aspect of the acromium. Report Dictated on Final Dictating Physician: DO BARRERA ANTHONY Signed Date and Time: 08/23/2020 3:10 pm Signed by: DO BARRERA ANTHONY Transcribed Date and Time: 08/23/2020 3:11 Normal [facility] XR ELBOW RIGHT (MIN 3 VIEWS) on 08-23-2020 Patient Name: JORGE WRIGHT ---Diagnostic Radiology--- Exam Date/Time 08/23/2020 14:36:41 EST Exam CR Elbow 3+ Views Right Ordering Physician DO ALDRICH EUGENE F. Accession Number [id number] CPT4 Codes 75527 () Reason For Exam MT pain , ventrally Report RIGHT ELBOW, 3 VIEWS: INDICATION: Pain right elbow COMPARISON: No previous studies are available for comparison. Frontal, lateral and oblique views of the right elbow were obtained. The bone density appears normal. There are no fractures or dislocations. The joint spaces are within normal limits. There are no significant soft tissue abnormalities. No joint effusion is noted. IMPRESSION: Negative examination of the elbow. Report Dictated on Workstation: [id number] --- Final --- Dictating Physician: DO GLEZ ALFRED Signed Date and Time: 08/23/2020 4:39 pm Signed by: DO GLEZ ALFRED Transcribed Date and Time: 08/23/2020 4:40 [facility], [facility], [facility] Incoming Radiology Results From [facility] - 08/23/2020 4:40 PM EST Patient Name: JORGE VELASQUEZ ---Diagnostic Radiology--- Exam Date/Time 08/23/2020 14:36:41 EST Exam CR Elbow 3+ Views Right Ordering Physician DO ALDRICH EUGENE F. Accession Number [id number] CPT4 Codes 30834 () Reason For Exam MT pain , ventrally Report RIGHT ELBOW, 3 VIEWS: INDICATION: Pain right elbow COMPARISON: No previous studies are available for comparison. Frontal, lateral and oblique views of the right elbow were obtained. The bone density appears normal. There are no fractures or dislocations. The joint spaces are within normal limits. There are no significant soft tissue abnormalities. No joint effusion is noted. IMPRESSION: Negative examination of the elbow. Report Dictated on Workstation: [id number] --- Final --- Dictating Physician: DO GLEZ ALFRED Signed Date and Time: 08/23/2020 4:39 pm Signed by: DO GLEZ ALFRED Transcribed Date and Time: 08/23/2020 4:40 [employer] XR FOOT RIGHT (MIN 3 VIEWS)o n 08-23-2020 Patient Name: JORGE WRIGHT ---Diagnostic Radiology--- Exam Date/Time 08/23/2020 14:36:41 EST Exam CR Foot Complete 3+ Views Right Ordering Physician DO ALDRICH EUGENE F. Accession Number [id number] CPT4 Codes 92423 () Reason For Exam ventral foot pain Report Indication: Pain. Three views of the right foot show no evidence of an acute fracture or dislocation. There is no bone destruction, erosion or periosteal reaction. No significant osteoarthritic degenerative changes are visualized. There is a small plantar calcaneal spur. There are no radiopaque foreign bodies. IMPRESSION: 1. No evidence of an acute bone process. 2. Small plantar calcaneal spur. Report Dictated on --- Final --- Dictating Physician: DO BARRERA ANTHONY Signed Date and Time: 08/23/2020 2:48 pm Signed by: DO BARRERA ANTHONY Transcribed Date and Time: 08/23/2020 2:49 [employer] [place] Jose [facility], [facility] Incoming Radiology Results From [facility] - 08/23/2020 2:50 PM EST Patient Name: JORGE VELASQUEZ ---Diagnostic Radiology--- Exam Date/Time 08/23/2020 14:36:41 EST Exam CR Foot Complete 3+ Views Right Ordering Physician DO ALDRICH EUGENE F. Accession Number [id number] CPT4 Codes 88502 () Reason For Exam ventral foot pain Report Indication: Pain. Three views of the right foot show no evidence of an acute fracture or dislocation. There is no bone destruction, erosion or periosteal reaction. No significant osteoarthritic degenerative changes are visualized. There is a small plantar calcaneal spur. There are no radiopaque foreign bodies. IMPRESSION: 1. No evidence of an acute bone process. 2. Small plantar calcaneal spur. Report Dictated on --- Final --- Dictating Physician: DO BARRERA ANTHONY Signed Date and Time: 08/23/2020 2:48 pm Signed by: DO BARRERA ANTHONY Transcribed Date and Time: 08/23/2020 2:49 [place] XR Shoulder Right 2 VWon Patient Name: JORGE WRIGHT ---Diagnostic Radiology--- Exam Date/Time 08/23/2020 14:36:41 EST Exam CR Shoulder 2+ Views Right Ordering Physician DO ALDRICH EUGENE F. Accession Number [id number] CPT4 Codes 44908 () Reason For Exam painful impingement Report Indication: Pain. Three views of the right shoulder show no evidence of an acute fracture or dislocation. There is no bone destruction, erosion or periosteal reaction. The right acromioclavicular joint is intact. There is mild bony spurring along the inferior aspect of the acromium. There are no radiopaque foreign bodies. IMPRESSION: 1. No evidence of an acute bone process. Mild bony spurring along the inferior aspect of the acromium. Report Dictated on --- Final --- Dictating Physician: DO BARRERA ANTHONY Signed Date and Time: 08/23/2020 3:10 pm Signed by: DO BARRERA ANTHONY Transcribed Date and Time: 08/23/2020 3:11 [facility], [place] Jose C, [facility] Incoming Radiology Results From [facility] - 08/23/2020 3:11 PM EST Patient Name: JORGE VELASQUEZ ---Diagnostic Radiology--- Exam Date/Time 08/23/2020 14:36:41 EST Exam CR Shoulder 2+ Views Right Ordering Physician DO ALDRICH EUGENE F. Accession Number [id number] CPT4 Codes 52992 () Reason For Exam painful impingement Report Indication: Pain. Three views of the right shoulder show no evidence of an acute fracture or dislocation. There is no bone destruction, erosion or periosteal reaction. The right acromioclavicular joint is intact. There is mild bony spurring along the inferior aspect of the acromium. There are no radiopaque foreign bodies. IMPRESSION: 1. No evidence of an acute bone process. Mild bony spurring along the inferior aspect of the acromium. Report Dictated on --- Final --- Dictating Physician: DO BARRERA ANTHONY Signed Date and Time: 08/23/2020 3:10 pm Signed by: DO BARRERA ANTHONY Transcribed Date and Time: 08/23/2020 3:11 [employer] [facility], [place] Vital Signs Date Time Vital Sign Value Performing Clinician Syli rose 08-08-2023 15:32-0400 Body height 180.3 cm Jovana Rayo MD Work Phone: [employer] 08-08-2023 15:32-0400 Body mass index (BMI) [Ratio] 27.89 kg/m2 Jovana Rayo MD Work Phone: [employer] 08-08-2023 15:32-0400 Body temperature 98.4 [degF] Jovana Rayo MD Work Phone: [facility] [employer] 08-08-2023 15:32-0400 Body weight 90.72 kg Jovana Rayo MD Work Phone: [facility] [employer] 08-08-2023 15:32-0400 Diastolic blood pressure 91 mm[Hg] Jovana Rayo MD Work Phone: [facility] 08-08-2023 15:32-0400 Heart rate 64 /min Jovana Rayo MD Work Phone: [facility] 08-08-2023 15:32-0400 Respiratory rate 16 /min Jovana Rayo MD Work Phone: [facility] 08-08-2023 15:32-0400 SaO2% (BldA) [Mass fraction] 98 % Jovana Rayo MD Work Phone: [facility] 08-08-2023 15:32-0400 Systolic blood pressure 132 mm[Hg] Jovana Rayo MD Work Phone: [facility] Encounters Encounter Date Encounter Type Care Provider Facility Start: 08-08-2023 End: 08-08-2023 Emergency department patient visit [facility] Start: 08-08-2023 End: 08-08-2023 Emergency department patient visit Jovana Rayo MD Work Phone: [facility] ED Comment on above: Bee sting reaction, accidental or unintentional, initial encounter (Primary Dx) Start: 08-23-2020 End: 08-23-2020 Subsequent hospital visit by physician Jean Aldrich Work Phone: [facility] [place] [facility] Comment on above: Metatarsalgia of rig ht foot Procedures Date Procedure Procedure Detail Performing Clinician Start: 08-23-2020 Radex elbow complete minimum 3 views Jean Meza Valdemar Work Phone: Start: 08-23-2020 Radex foot complete minimum 3 views Jean Aldrich Work Phone: Start: 06-14-2020 Lipid 1996 panel - S calos or Plasma Jovana Rayo MD Work Phone: Plan of Treatment Date Care Activity Detail Author Start: 06-14-2025 Lipid panel Lipid Panel [facility] Start: 06-22-2023 Influenza vaccination Influenza Vacc ine (#1) [facility] Start: 02-15-2022 Screening for malign ant neoplasm of colon Colon cancer screen colonoscopy [place] Start: 06-14-2021 Creatinine measurement Creatinine mo [place]itoring [place] Start: 06-14-2021 Lipid panel Lipid screen [place], [place] Start: 06-14-2021 Potassium monitoring Potassium monit oring [place] Start: 06-14-2021 TSH Qn TSH testing [place], [place] Start: 12-15-2020 End: 12-15-2020 Office Visit 12/15/2020 Office Visit Family Medicine Jean Aldrich, [address] [place] [address] [phone] [facility] Start: 06-22-2020 Influenza vaccination Flu vaccine (# 1) [place] Start: 2010 Shingles Vaccine (1 of 2) Shingles Vaccine (1 of 2) [place] Start: 2010 Zoster Vaccines (1 of 2) Zoster Vacc marichuy (1 of 2) [facility] Start: 1979 DTaP/Tdap/Td vaccine (1 - Tdap) DTaP/Tdap/Td vaccine (1 - Tdap) [place] Start: 1979 DTaP/Tdap/Td Vaccine s (1 - Tdap) DTaP/Tdap/Td Vaccines (1 - Tdap) [facility] Start: 1978 Diabetes mellitus screening Diabetes Screening [facility] Start: 1978 Hepatitis C screening Hepatitis C Sc reening [facility] Start: 1975 HIV screening [facility] screen [facility] [employer] [place] Start: 1972 Depression Screening Depression Scre ening [facility] Start: 1961 MMR Vaccines (1 of 1 - Standard series) MMR Vaccines (1 of 1 - Standard series) [facility] Start: 05-21-1961 COVID-19 Vaccine (#1) COVID-19 Vacci ne (#1) [facility] Start: 1960 Hepatitis C screening Hepatitis C sc reen [place] Start: 1960 HIV screening HIV Screening [facility] Start: 1960 Screening for malign ant neoplasm of colon [facility] Start: 1960 Thyroid Nodule Ultrasound Thyroid Nodule Ultrasound [facility] Start: 1960 Thyroid stimulating hormone measurement TSH Level [facility] Payers Date Payer Category Payer Unknown [employer] [id number] 2023-Present [address] [place] [address] Exchange Plan [id number] 2023 Unknown [id number] 2015 Unknown BCBS BC[place] - [place] P PO [id number] 2015-Present [address] [place] [address] [id number] Social History Date Type Detail Facility Start: 08-23-2020 End: 08-08-2023 Tobacco smoking status NHIS Former smoker [place] End: 06-10-2008 History of tobacco use Current smoker [place] End: 06-10-2008 History of tobacco use Cigarette [place] Start: 08-23-2020 End: 08-08-2023 Tobacco use and exposure Never used [place] Start: 08-23-2020 End: 08-08-2023 Alcohol intake Current drinker of alcohol (finding) [place] Start: 05-22-2019 History SDOH Alcohol Frequency 5 [place] Start: 05-22-2019 History SDOH Alcohol Std Drinks 3 [place] Start: 05-22-2019 History SDOH Social Connections Phone 2 [place] Start: 05-22-2019 History SDOH Social Connections [employer] 1 [place] Start: 05-22-2019 History SDOH Social Connections Living 4 [place] Start: 05-22-2019 History SDOH Physica l Activity MPS 6 [place] Start: 06-10-2015 Alcohol Comment couple of beer s in the evening [place] Start: 1960 Sex Assigned At Not on file [facility] [place] Start: 08-08-2023 [facility] Start: 08-08-2023 Alcohol Comment frequently [facility] Estela brothersltestela Gender identity Not on file [facility] Goals Date Patient Goal Desired Activity /State Comment on above: Get to retire Barriers: financial Plan for overcoming my barriers: make more money Confidence: 9 Anticipated Goal Completion Date: age 60 Hospital Discharge instructions 08-08-2023 Discharge InstructionsAttachments Note Date & Type Note Facility 08-08-2023 Hospital Discharg e instructions Jovana Rayo MD - 08/08/2023 3:51 PM EDT Ice and elevate the hand and take Benadryl as directed. The following attachments cannot be sent through Care Everywhere.Insect Bites and Stings (Wolof)documented in this encounter [facility] Emergency department Note 08-08-2023 Jovana Rayo MD [...] 2021 Mixed hyperlipidemia 2014 Nontoxic multinodular goiter 2005 Prostate cancer screening 05/2020 SURGICAL HISTORY Past Surgical History: Procedure Laterality Date APPENDECTOMY [address] Zafar - justin 2021 UMBILICAL HERNIA REPAIR 02/04 CURRENT MEDICATIONS Previous Medications No medications on file ALLERGIES Pcn [penicillins] FAMILY HISTORY Family History Problem Relation Name Age of Onset Diabetes Brother Pio diet cont Heart disease Mother age 72 Depression Mother Heart disease Brother Tony 40.00 CAD, age 55 Heart disease Father [place] and cerebral Aneurysm at age 66 Pancreatic [...] History Narrative since 03/08 from [place] ([place] ,liviing with [place] since winter 2017. Has one son and one dtr Jami. 5 GD, one GS. Stopped smoking 2007,. Employed at [employer]. Does admit to drinking a six pack [...] PATIENT REFERRED TO: Jean Aldrich DO [address] [facility] [address] Schedule an appointment as soon as possible for a visit in 1 week [facility] ED [address] [address] If symptoms worsen DISCHARGE MEDICATIONS: [...] signed) Emergency Medicine Provider Jovana Rayo MD 08/08/231552 States stung by bee this afternoon while working in the yard. Right hand moderately swollen with intact sensation and movement. Ice bag applied. States throat feels scratchy but thinks has had that all day. No respiratory difficulty. documented in this encounter [facility] Emergency department Triage note 08-08-2023 Mariel Gonzalez RN - 08/08/2023 3:25 PM EDT Note Date & Type Note Facility 08-08-2023 Emergency departm ent Triage note States stung by bee this afternoon while working in the yard. Right hand moderately swollen with intact sensation and movement. Ice bag applied. States throat feels scratchy but thinks has had that all day. No respiratory difficulty. [facility] Physician Emergency department Note 08-08-2023 Jovana Rayo [...] 2012 Elbow fracture, right 1973 Essential hypertension 2017 Family history of ischemic heart disease Family history of malignant neoplasm of gastrointestinal tract brother , Noble age 55 GERD (gastroesophageal reflux disease) H/O colonoscopy 2011 Ayeshaber- due 2021 Mixed hyperlipidemia 2015 Nontoxic multinodular goiter 2005 Prostate cancer screening 05/2020 SURGICAL HISTORY Past Surgical History: Procedure Laterality Date APPENDECTOMY [address] Zafar - justin 2021 UMBILICAL HERNIA REPAIR 02/04 CURRENT MEDICATIONS Previous Medications No medications on file ALLERGIES Pcn [penicillins] FAMILY HISTORY Family History Problem Relation Name Age of Onset Diabetes Brother Pio diet cont Heart disease Mother age 72 Depression Mother Heart disease Brother Tony 40.00 CAD, age 55 Heart disease Father [place] and cerebral Aneurysm at age 66 Pancreatic [...] History Narrative since 03/08 from [place] ([place] ,liviing with [place] since winter 2017. Has one son and one dtr Jami. 5 GD, one GS. Stopped smoking 2007,. Employed at [employer]. Does admit to drinking a six pack [...] PATIENT REFERRED TO: Jean Aldrich DO [address] [facility] [address] Schedule an appointment as soon as possible for a visit in 1 week [facility] ED [address] [facility] [address] If symptoms worsen DISCHARGE MEDICATIONS: [...] signed) Emergency Medicine Provider Jovana Rayo MD 08/08/231552 [facility] Evaluation note Note Date & Type Note Facility Evaluation note Diagnosis Bee sting reaction, accidental or unintentional, initial encounter- Primary documented in this encounter [facility] Health Assessments Diagnosis Metatarsalgia of right foot Enthesopathy of ankle and tarsus, unspecified Advance Directives No Advanced Directives Records FoundDocuments on File Type Date Recorded Patient Rib Sawyer Expl anation ACP-Advance Directive ACP-Power of Can Dryer ACP-Power of Can Dryer 06/24/2019 10:52 AM Summary Purpose Family History No Family History Records FoundNo Family History Records Found Additional Source Comments (unrecognized sect ion and content) No Status Records FoundNo Status Records Found INFORMATION SOURCE (unrecogn ized section and content) DATE CREATED AUTHOR 08/24/2020 [facility] DATE CREATED AUTHOR AUTHOR'S ORGANIZ ATION 08/10/2023 [facility] Reason for Visit (unrecogniz ed section and content) Reason Comments Insect Bite hand swelling Scheduled Active and Recently Administ ered Medications (unrecognized section and content) Medication Order 08/06/2023 08/07/2023 08/08/2023 predniSONE (Deltasone) tablet 60 mg (COMPLETED) 60 mg, Oral, Once, On Sun08/08/23 at 1555, For 1 dose 1553 (Given - Provid er: Mariel Gonzalez RN) Care Teams (unrecognized sec tion and content) [employer] Relationship Specialty Start Date End Date Jean Aldrich DO [address] [place] [address] PCP - General 02/07/16 FOR RECORDS PERTAINING TO PATIENTS WHO ARE [...] BE BASED ON THE PRIMARY CLINICAL RECORDS. [employer] [facility]. provides no warranty or guarantee of the accuracy or completeness of information in this document.
[2024-08-11 08:55] LABS: Absolute Lymphocyte Count 1.87 X10^3/uL (0.83-4.51); Absolute Neutrophil Count 4.7 X10^3/uL (2.0-7.7); Basophil# 0.07 X10^3/uL; Basophil% 0.9 % (0-1); Eosinophil# 0.16 X10^3/uL; Eosinophils% 2.2 % (0-5); Hematocrit 44.3 % (40-54); Hemoglobin 14.6 g/dL (13.0-16.5); Lymphocyte # 1.87 X10^3/ul (0.83-4.51); Lymphocyte % 25.2 % (19-41); Mean Corpuscular Hgb 30.5 pg (27.0-32.0); Mean Corpuscular Volume 92.5 fL (80-94); Mean Platelet Vol. 9.3 fl (6.2-12.0); Monocyte# 0.62 X10^3/uL; Monocyte% 8.3 % (0-10); NRBC Flagged by Analyzer 0 % (0-5); Neutrophil # 4.68 X10^3/uL (2.7-7.7); Platelet Count 273 K/mm3 (150-450); RBC Distribution Width CV 11.5 % (11.6-14.6); RBC Distribution Width SD 39.3 fl (35.1-43.9); Red Blood Count 4.79 M/mm3 (4.6-6.2); White Blood Count 7.4 K/mm3 (4.4-11.0)
[2024-08-11 09:50] LABS: AST(SGOT) 35 U/L (15-37); Alanine Aminotransfer ALT/SGPT 54 U/L (16-61); Albumin, Serum 3.8 g/dL (3.2-5.0); Alkaline Phosphatase 94 U/L (45-117); Anion Gap 9 (5-15); BUN 11 mg/dL (7-18); BUN/Creat Ratio 15.7 RATIO (10-20); Calcium,Total 9.1 mg/dL (8.5-10.1); Chloride 103 mmol/L (98-107); Cholesterol 170 mg/dL (200); EST Glomerular Filtration Rate 120 mL/min (>60); Est Glom Filt Rate - Afr Amer 146 mL/min (>60); Globulin 3.7 g/dL (2.2-4.2); Glucose 87 mg/dL (74-106); High Density Lipoprotein 58 mg/dL; Potassium 3.7 mmol/L (3.5-5.1); Protein, Total 7.5 g/dL (6.4-8.2); Sodium Level 138 mmol/L (136-145); Triglycerides 413 mg/dL
== END | disposition home or self-care (01) ==
LOC: LAB 08:17
PROVIDERS: PCP Family Medicine; Referring Provider Family Medicine; Visit Provider Family Medicine
DX: Z00.00 Encounter for general adult medical examination without abnormal findings (principal); K21.9 Gastro-esophageal reflux disease without esophagitis; I10 Essential (primary) hypertension; E03.9 Hypothyroidism, unspecified; E78.5 Hyperlipidemia, unspecified
CPT/HCPCS: 36415; 80053; 80061; 84443; 85025

== ENCOUNTER → 2024-11-26 | Outpatient (CLI) | payer OTHER, SELFPAY ==
[2024-11-26 13:41] LABS: PSA,Total - Annual Screen 0.34 ng/mL (0.00-4.00)
== END | disposition home or self-care (01) ==
LOC: LAB 12:34
PROVIDERS: PCP Family Medicine; Referring Provider Urology; Visit Provider Urology
DX: N40.1 Benign prostatic hyperplasia with lower urinary tract symptoms (principal)
CPT/HCPCS: 36415; 84153; G0103

== ENCOUNTER → 2025-04-07 | Outpatient (CLI) | payer OTHER, SELFPAY ==
--- NOTE | 2025-04-07 13:06 | RAD_ITS ---
PROCEDURE: SHOULDER MIN 2 VIEWS 04/07/2025 REASON FOR EXAM: PAIN, FALL TECHNIQUE: SHOULDER MIN 2 VIEWS COMPARISON: None. FINDINGS: Mild osteopenia of the visualized bones. Degenerative joint disease. No fracture or dislocation is seen. No lytic or blastic bone lesion is noted. RAD/Shoulder min 2 Views IMPRESSION: No evidence for acute abnormality. Reading [facility]
== END | disposition home or self-care (01) ==
LOC: MTRAD 12:55
PROVIDERS: PCP Family Medicine; Referring Provider Family Medicine; Visit Provider Family Medicine
DX: M25.512 Pain in left shoulder (principal)
CPT/HCPCS: 73030

== ENCOUNTER → 2025-09-11 | Outpatient (CLI) | payer OTHER, SELFPAY ==
[2025-09-11 11:10] LABS: Hematocrit 45.5 % (40-54); Hemoglobin 15.3 g/dL (13.0-16.5); Immature Granulocytes Count 0.030 X10^3/uL (0.0-0.0); Mean Corp Hgb Conc 33.6 g/dL (32-36); Mean Corpuscular Volume 93.4 fL (80-94); Mean Platelet Vol. 9.3 fl (6.2-12.0); NRBC Flagged by Analyzer 0 % (0-5); Platelet Count 220 K/mm3 (150-450); RBC Distribution Width CV 11.8 % (11.6-14.6); RBC Distribution Width SD 40.2 fl (35.1-43.9); Red Blood Count 4.87 M/mm3 (4.6-6.2); White Blood Count 7.8 K/mm3 (4.4-11.0)
[2025-09-11 11:49] LABS: AST(SGOT) 33 U/L (<=37); Alanine Aminotransfer ALT/SGPT 46 U/L (<=46); Albumin, Serum 4.4 g/dL (3.4-4.8); Alkaline Phosphatase 82 U/L (40-129); Anion Gap 9 (5-15); BUN 10 mg/dL (4-19); BUN/Creat Ratio 12.9 RATIO (10-20); Calcium,Total 9.7 mg/dL (7.6-11.0); Carbon Dioxide 26.5 mmol/L (21.0-32.0); Chloride 105 mmol/L (98-108); Cholesterol 145 mg/dL (<=200); Globulin 2.7 g/dL (2.2-4.2); Glucose 87 mg/dL (70-99); Low Density Lipoprotein Calc. 58 mg/dL; Potassium 4.8 mmol/L (3.3-5.1); Triglycerides 121 mg/dL; Very Low Density Lipoprotein 24 mg/dL (5-40); cholesterol:hdl ratio screen 2.19
== END | disposition home or self-care (01) ==
LOC: LAB 10:37
PROVIDERS: PCP Family Medicine; Referring Provider Family Medicine; Visit Provider Family Medicine
DX: Z00.00 Encounter for general adult medical examination without abnormal findings (principal); K21.9 Gastro-esophageal reflux disease without esophagitis; I10 Essential (primary) hypertension; E03.9 Hypothyroidism, unspecified; E78.5 Hyperlipidemia, unspecified
CPT/HCPCS: 36415; 80053; 80061; 84443; 85025